=== PATIENT | female | born 1970 | race Caucasian/White ===

== ENCOUNTER → 2018-03-17 | Outpatient (CLI) | payer OTHER ==
--- NOTE | 2018-03-31 12:59 | EM ---
EVENT MONITOR AGE: 48 SEX: Female INDICATIONS: Event monitor shows sinus rhythm and sinus tachycardia with frequent PVCs, mostly of one single morphology and one run of nonsustained ventricular tachycardia at about 120 beats a minute for 9 beats, at night (4 a.m.). No sustained ventricular tachycardia. The PVCs often occur in a quadrigeminal pattern. MMSILVIO / JAQUELINEN: [id number] /
== END | disposition home or self-care (01) ==
LOC: RADECHMAIN 12:14
PROVIDERS: ATTEND Internal Medicine
DX: I49.3 Ventricular premature depolarization (principal); R00.0 Tachycardia, unspecified
CPT/HCPCS: 93270; 93271